=== PATIENT | female | born 1970 ===

== ENCOUNTER 2016-11-12 15:20 | Emergency (ER) | payer OTHER ==
[2016-11-12 15:24] VITALS: O2SAT 100
--- NOTE | 2016-11-12 16:25 | C.PDOC ---
History Of Present Illness 45 yo female c/o right sided upper back pain for two weeks. Worse with movement of right arm. No direct trauma. Pt was evaluated by PMd and treated with Aleve. No change in sensation. No chest pain or SOB. Pt right hand dominant. Time Seen by Provider: 11/12/16 15:43 Chief Complaint (Nursing): Back Pain History Per: Patient History/Exam Limitations: no limitations Onset/Duration Of Symptoms: Days Current Symptoms Are (Timing): Still Present Past Medical History Vital Signs: Last Vital Signs Temp 97.5 F L 11/12/16 17:04 Pulse 69 11/12/16 17:04 Resp 20 11/12/16 17:04 BP 106/74 11/12/16 17:04 Pulse Ox 100 11/12/16 17:04 - Medical History PMH: Arthritis, Hypothyroidism Family History: States: Unknown Family Hx - Social History Hx Tobacco Use: No Hx Alcohol Use: No Hx Substance Use: No - Immunization History Hx Tetanus Toxoid Vaccination: No Hx Influenza Vaccination: No Hx Pneumococcal Vaccination: No Review Of Systems Except As Marked, All Systems Reviewed And Found Negative. Cardiovascular: Negative for: Chest Pain Respiratory: Negative for: Shortness of Breath Musculoskeletal: Positive for: Back Pain Physical Exam - Physical Exam Appears: Well, Non-toxic, No Acute Distress Skin: Normal Color, Warm, Dry Head: Atraumatic, Normacephalic Eye(s): bilateral: Normal Inspection, EOMI Nose: Normal Oral Mucosa: Moist Throat: Normal Neck: Normal, Normal ROM, No Midline Cervical Tenderness, No Paracervical Tenderness, No Step Off Deformity, Supple Chest: Symmetrical Cardiovascular: Rhythm Regular Respiratory: Normal Breath Sounds Back: No Vertebral Tenderness, Paraspinal Tenderness ((+) right sided trapezius point tenderness) Extremity: Normal ROM, No Tenderness Extremity: Bilateral: Atraumatic, Normal Color And Temperature, Normal ROM Neurological/Psych: Oriented x3, Normal Speech, Normal Motor (pain exacerbated to resistance with right arm), Normal Sensation ED Course And Treatment O2 Sat by Pulse Oximetry: 100 - Other Rad Thoracic XR X-Ray: Interpreted by Me, Viewed By Me Interpretation: HISTORY: Pain. COMPARISON: No prior. FINDINGS: BONES: Alignment maintained. No fracture. DISC SPACES: Minor multilevel degenerative spondylosis. Changes include minor anterior disc space narrowing with endplate eburnation and small marginal anterior osteophytes. SOFT TISSUES: Paraspinal soft tissues appear grossly unremarkable. OTHER FINDINGS: Heart size is upper limits of normal. IMPRESSION: No acute fractures. Minor multilevel degenerative spondylosis. Progress Note: Pt refused pain medication. On reassessment, patient is resting comfortably. Patient remains afebrile, with no bony tenderness, extremity numbness or weakness, or chest pain. Patient is ambulatory in the emergency department with no signs of discomfort. Patient was advised to follow up with physician/clinic in 1-2 days. Disposition - Disposition Disposition: HOME/ ROUTINE Disposition Time: 16:29 Condition: STABLE Additional Instructions: Follow up with primary medical doctor in 1-3 days without fail for further evaluation. Take medications as prescribed. Return to the emergency department at any time if symptoms persist or worsen. Prescriptions: Cyclobenzaprine [Cyclobenzaprine HCl] 10 mg PO TID #20 tab Naproxen [Naprosyn] 1 tab PO BID PRN #20 tab PRN Reason: Pain Instructions: Back Pain (ED) Forms: [facility] (Kyr[place]z) - Clinical Impression Clinical Impression: Trapezius muscle spasm
--- NOTE | 2016-11-12 16:57 | RAD ---
HISTORY: Pain. COMPARISON: No prior. FINDINGS: BONES: Alignment maintained. No fracture. DISC SPACES: Minor multilevel degenerative spondylosis. Changes include minor anterior disc space narrowing with endplate eburnation and small marginal anterior osteophytes SOFT TISSUES: Paraspinal soft tissues appear grossly unremarkable. OTHER FINDINGS: Heart size is upper limits of normal. IMPRESSION: No acute fractures. Minor multilevel degenerative spondylosis.
[2016-11-12 17:05] VITALS: BP 106/74; PULSE 69; RESP 20; TEMP 97.5
== END 2016-11-12 17:05 | disposition home or self-care (01) ==
LOC: C.ER 15:20
DX: M62.830 Muscle spasm of back (principal)